=== PATIENT | male | born 1955 | race Caucasian/White ===

== ENCOUNTER 2023-01-30 10:47 | Emergency (ER) | payer MEDICARE, SELFPAY ==
[2023-01-30] VITALS (9 sets, daily range): BP systolic 101–134; BP diastolic 66–81; PULSE 69–87; RESP 16; TEMP 36.3; O2SAT 97–99; BMI 30.7
--- NOTE | 2023-01-30 11:00 | ED.GENADULT ---
HPI - General Adult General Chief complaint: Abdominal Pain Stated complaint: poss apendix problem Time Seen by Provider: 01/30/23 10:53 Source: patient Mode of arrival: Ambulatory Limitations: no limitations History of Present Illness HPI narrative: 68-year-old male who is here for evaluation of 3-4 days of right lower quadrant abdominal pain. No urinary symptoms. No testicular pain. No change in bowel habits. No nausea or vomiting. No fevers. No specific trauma. Patient states he is leaving for [place] in a couple days and he wanted to make sure that he does not have appendicitis before he goes on his trip. Related Data Home Medications Medication Instructions Recorded Confirmed levothyroxine 100 mcg tablet ##0 09/14/17 12/13/17 liothyronine 5 mcg tablet (Cytomel) ##0 09/14/17 12/13/17 omeprazole magnesium 20 mg ##0 09/14/17 12/13/17 tablet,delayed release (Prilosec OTC) simvastatin 40 mg tablet (Zocor) ##0 09/14/17 12/13/17 venlafaxine 225 mg tablet,extended ##0 09/14/17 12/13/17 release 24 hr Previous Rx's Medication Instructions Recorded azithromycin 250 mg tablet See Rx Instructions PO .COMPLEX #6 12/13/17 tabs Allergies Allergy/AdvReac Type Severity Reaction Status Date / Time Sulfa (Sulfonamide Allergy Intermediate hives Verified 12/13/17 10:10 Antibiotics) Review of Systems Gastrointestinal Gastrointestinal: Reports system reviewed and no additional complaints, except as documented Genitourinary Genitourinary: Reports system reviewed and no additional complaints, except as documented Musculoskeletal Musculoskeletal: Reports system reviewed and no additional complaints, except as documented Integumentary/Breasts Skin/Breast: Reports system reviewed and no additional complaints, except as documented Hematologic/Lymphatic On Anticoagulants: No Patient History Social History Smoking Status: Never smoker Smoking Status: Never smoker Exam Initial Vital Signs Initial Vital Signs: Vital Signs Pulse Rate 79 01/30/23 10:58 Blood Pressure 134/81 01/30/23 10:58 Pulse Oximetry 98 01/30/23 10:58 Resp Effort & Inspection: normal respiratory effort Cardio Rate: regular rate GI Other: Right lower quadrant abdominal pain with some rebound. No left-sided pain. Back/Spine/Pelvis Back: No CVA tenderness Extrem General: normal to inspection Course Orders Ordered: ED Orders 01/30/23 11:01 CT abdomen pelvis w con Stat 01/30/23 11:05 Complete Blood Count AUTO DIFF Stat Comprehensive Metabolic Panel Stat Lipase Stat Vital Signs Vital signs: Vital Signs - 8 hr 01/30/23 11:01 01/30/23 10:58 01/30/23 10:58 Temperature 97.3 F L Pulse Rate 77 79 Respiratory Rate 16 Blood Pressure 134/81 134/81 Pulse Oximetry 97 98 Oxygen Delivery Method Room Air 01/30/23 11:00 01/30/23 11:00 01/30/23 11:30 Temperature Pulse Rate 81 Respiratory Rate Blood Pressure 123/72 112/76 Pulse Oximetry 99 Oxygen Delivery Method 01/30/23 11:30 01/30/23 11:46 01/30/23 11:46 Temperature Pulse Rate 71 87 Respiratory Rate Blood Pressure 106/69 Pulse Oximetry 97 97 Oxygen Delivery Method 01/30/23 12:00 01/30/23 12:00 01/30/23 12:30 Temperature Pulse Rate 73 Respiratory Rate Blood Pressure 101/66 114/72 Pulse Oximetry 98 Oxygen Delivery Method 01/30/23 12:30 01/30/23 13:00 01/30/23 13:00 Temperature Pulse Rate 71 69 Respiratory Rate Blood Pressure 116/77 Pulse Oximetry 98 98 Oxygen Delivery Method Medical Decision Making Lab Data Lab results reviewed: Yes I reviewed the patient's lab results. 01/30/23 11:05 01/30/23 11:05 Labs: Lab Results 01/30/23 01/30/23 Range/Units 11:05 11:05 WBC 8.2 (4.5-11.0) X10^3/uL RBC 4.55 (4.5-5.9) X10^6/uL Hgb 13.8 (13.5-17.5) g/dL Hct 39.0 L (41-53) % MCV 85.7 (80-100) fL MCH 30.3 (26-34) PG MCHC 35.3 (30-36) % RDW 14.5 (11.6-14.8) % Plt Count 239 (150-400) X10^3/uL Neut % (Auto) 60.5 (50-75) % Lymph % (Auto) 25.7 (25-40) % [place] % (Auto) 8.6 (3-14) % Eos % (Auto) 3.9 (2-4) % Baso % (Auto) 1.3 (0-2) % Neut # (Auto) 5000 (5504-4282) /uL Lymph # (Auto) 2100 (5164-2885) /uL [place] # (Auto) 700 (0-900) /uL Eos # (Auto) 300 (0-450) /uL Baso # (Auto) 100 (0-100) /uL Sodium 138 (137-145) mmol/L Potassium 4.0 (3.4-5.1) mmol/L Chloride 104 (98-107) mmol/L Carbon Dioxide 26 (22-32) mmol/L BUN 12 (9-20) mg/dL Creatinine 0.90 (0.66-1.25) mg/dL Estimated GFR > 60 (>60) mL/min BUN/Creatinine Ratio 13.3 (6-22) Glucose 110 (80-110) mg/dL Calcium 9.1 (8.4-10.2) mg/dL Total Bilirubin 0.5 (0.2-1.3) mg/dL AST 35 (17-59) IU/L ALT 41 (<50) IU/L Alkaline Phosphatase 89 (38-126) U/L Total Protein 7.8 (6.3-8.2) g/dL Albumin 4.4 (3.5-5.0) g/dL Globulin 3.4 (1.7-4.1) g/dL Albumin/Globulin Ratio 1.3 (1.0-2.8) Lipase 170 (23-300) U/L Urine Dip Bedside Urine Glucose Negative Bedside Urine Bilirubin - Negative Bedside Urine Ketone - Negative Urine Specific [place] 1.005 Bedside Urine Occult Blood - Negative Bedside Urine pH 6.5 Bedside Urine Protein - Negative Bedside Urine Urobilinogen - Negative Bedside Urine Nitrite - Negative Bedside Urine Leukocytes - Negative Esterase Point of care testing: Urine Dip Bedside Urine Glucose Negative Bedside Urine Bilirubin - Negative Bedside Urine Ketone - Negative Urine Specific [place] 1.005 Bedside Urine Occult Blood - Negative Bedside Urine pH 6.5 Bedside Urine Protein - Negative Bedside Urine Urobilinogen - Negative Bedside Urine Nitrite - Negative Bedside Urine Leukocytes - Negative Esterase Imaging Data CT scan - abdomen/pelvis: Radiologist's Impression: Findings suggestive mild moderate length segment distal sigmoid colitis, less likely diverticulitis and adjacent epiploic appendagitis. MDM Narrative Medical decision making narrative: He is a benign exam. Labs unremarkable. CT scan shows sigmoid colitis. He is not having any diarrhea. He states he is had very similar symptoms in the past that have gone away on their own it is just he came in today because he is going on vacation in a few days. We did discuss the use of Tylenol and ibuprofen. No indication for antibiotics. Will have him follow-up with his primary doctor. He expressed understanding and agreement. Discharge Plan Departure Patient Disposition: Home Clinical Impression: Colitis Instructions: DI for Abdominal Pain-Adult, DI for Colitis Activity Restrictions/Additional Instructions: Recommend that you continue to take all of your medications as directed. You can take Tylenol or ibuprofen for any discomfort. Return to the emergency department for new or worsening symptoms. Prescriptions: No Action azithromycin 250 mg tablet See Rx Instructions PO .COMPLEX Qty: 6 0RF Dose Instruction: take 500 mg today (day 1), then 250 mg for 4 days (days 2-5) PO Rx Instructions: take 500 mg today (day 1), then 250 mg for 4 days (days 2-5) PO simvastatin [Zocor] 40 MG tablet Qty: 0 liothyronine [Cytomel] 5 MCG tablet Qty: 0 levothyroxine 100 MCG tablet Qty: 0 omeprazole magnesium [Prilosec OTC] 20 MG tablet,delayed release (DR/EC) Qty: 0 venlafaxine 225 MG tablet extended release 24hr Qty: 0 Referrals: Remedios Estrada MD [Primary Care Provider] - Stand Alone Forms: Patient Portal/API
--- NOTE | 2023-01-30 11:01 | DI.CT.S_ITS ---
PROCEDURE: CT ABDOMEN PELVIS W CON INDICATIONS: Right lower quadrant abdominal pain TECHNIQUE: After the administration of oral and IV contrast, axial sections were acquired from the lung bases to the pubic symphysis. Coronal and sagittal reformats were performed. For radiation dose reduction, the following was used: automated exposure control, adjustment of mA and/or kV according to patient size. COMPARISON: None. FINDINGS: Image quality: Excellent. Lung bases: Clear lung bases. Tiny hiatal hernia. Heart: No significant findings. ABDOMEN: Liver: Mild diffuse hepatic steatosis. Gallbladder: Normal. Biliary ducts: Nondilated. Pancreas: Normal. Spleen: Normal size. Adrenal Glands: No nodules. Kidneys and Ureters: Symmetric enhancement. No nephrolithiasis or hydronephrosis. No hydroureter. Left extrarenal pelvis and abrupt narrowing of the proximal ureter at the ureteropelvic junction. Small right midpole cyst.. Stomach and Bowel: Mild diverticulosis of the distal sigmoid. There is mild moderate length segment of slight wall thickening and enhancement involving this segment of sigmoid which courses to the right of midline. There is an adjacent circumscribed fatty mass immediately adjacent to the sigmoid in the right lower quadrant with trace surrounding haziness of the fat suggesting epiploic appendagitis. The appendix is in the right mid abdomen to right upper quadrant directed cranial and there are no surrounding inflammatory changes. Stomach and small bowel loops are normal. Peritoneum: No abnormal intraperitoneal fluid. No free air. Ventral Wall: No hernia. Abdominal Nodes: No retroperitoneal or mesenteric adenopathy by size criteria. Vessels: Aorta and inferior vena cava are normal in size. PELVIS: Pelvic Organs: Mildly enlarged prostate gland. Bladder: Normal wall thickness. No stones. Pelvic Nodes: No enlarged lymph nodes. Miscellaneous: No inguinal hernias are seen. Bones: There are serpiginous subcortical cystic changes in both femoral heads suspicious for avascular necrosis. Femoral head shape remains spherical. No suspicious bone lesions. IMPRESSION: 1. Findings suggesting mild moderate length segment distal sigmoid colitis, less likely diverticulitis, and adjacent epiploic appendagitis. 2. No evidence of free fluid, free air, or abscess. 3. Normal appendix. 4. Mild hepatic steatosis. 5. Changes in the femoral head suspicious for avascular necrosis. Correlate clinically. Dictated by: Paris Penaloza M.D. on 01/30/2023 at 13:01 Approved by: Paris Penaloza M.D. on 01/30/2023 at 13:10
[2023-01-30 11:15] LABS: Add Manual Diff / Slide Review NO; Basophils Absolute Auto 100 /uL (0-100); Basophils Percent Auto 1.3 % (0-2); Eosinophils Absolute Auto 300 /uL (0-450); Eosinophils Percent Auto 3.9 % (2-4); Hemoglobin 13.8 g/dL (13.5-17.5); Lymphocytes Absolute Auto 2100 /uL (1100-4500); Lymphocytes Percent Auto 25.7 % (25-40); Mean Corpuscular HGB Conc 35.3 % (30-36); Mean Corpuscular Hemoglobin 30.3 PG (26-34); Mean Corpuscular Volume 85.7 fL (80-100); Monocytes Absolute Auto 700 /uL (0-900); Monocytes Percent Auto 8.6 % (3-14); Neutrophils Absolute Auto 5000 /uL (1500-7000); Neutrophils Percent Auto 60.5 % (50-75); Platelet Count 239 X10^3/uL (150-400); Red Blood Cell Count 4.55 X10^6/uL (4.5-5.9); Red Cell Distribution Width 14.5 % (11.6-14.8); White Blood Cell Count 8.2 X10^3/uL (4.5-11.0)
[2023-01-30 11:27] LABS: Alanine Aminotransferase 41 IU/L (<50); Albumin 4.4 g/dL (3.5-5.0); Albumin Globulin Ratio 1.3 (1.0-2.8); Alkaline Phosphatase 89 U/L (38-126); Aspartate Aminotransferase 35 IU/L (17-59); BUN Creatinine Ratio 13.3 (6-22); Bilirubin Total 0.5 mg/dL (0.2-1.3); Blood Urea Nitrogen 12 mg/dL (9-20); Calcium 9.1 mg/dL (8.4-10.2); Carbon Dioxide 26 mmol/L (22-32); Chloride 104 mmol/L (98-107); Estimated Glomerular Filt Rate > 60 mL/min (>60); Globulin 3.4 g/dL (1.7-4.1); Glucose 110 mg/dL (80-110); HEMOLYSIS < 15 (0-50); Lipase 170 U/L (23-300); Sodium 138 mmol/L (137-145); Total Protein 7.8 g/dL (6.3-8.2)
== END 2023-01-30 13:38 | disposition home or self-care (01) ==
PROVIDERS: Emergency Provider Emergency Medicine; PCP Family Medicine
DX: K52.9 Noninfective gastroenteritis and colitis, unspecified (principal)
CPT/HCPCS: 36415; 74177; 80053; 81003; 83690; 85025; 99283; 99284

== ENCOUNTER → 2023-12-04 18:20 | Outpatient (CLI) | payer MEDICARE, SELFPAY | PROVIDERS: PCP Family Medicine; Visit Provider Nurse Practitioner Family | DX: R30.0 Dysuria (principal) | CPT/HCPCS: 87077; 87086; 87186 ==

== ENCOUNTER → 2023-12-11 10:21 | Outpatient (CLI) | payer MEDICARE, SELFPAY | PROVIDERS: PCP Family Medicine; Visit Provider Nurse Practitioner Family | DX: R30.0 Dysuria (principal) | CPT/HCPCS: 87086 ==

== ENCOUNTER → 2023-12-11 10:51 | Outpatient (CLI) | payer MEDICARE, SELFPAY ==
--- NOTE | 2023-12-11 10:52 | DI.US.S_ITS ---
PROCEDURE: US SCROTUM INDICATIONS: Right testicle pain TECHNIQUE: Real-time scanning was performed of the scrotum and testicles, with image documentation. Color and pulse Doppler interrogation was performed of both testicles. COMPARISON: None. FINDINGS: Right: Testicle is normal in size at 2.2 x 1.2 x 1.9 cm, and homogenous in echotexture. Epididymis is normal in overall size and heterogeneous in morphology. No hydrocele or varicoceles. Overlying scrotal skin is normal in thickness. Left: Testicle is normal in size at 3.8 x 1.8 x 2.3 cm, and homogeneous in echotexture. Epididymis is normal in overall size and morphology. No hydrocele or varicoceles. Overlying scrotal skin is normal in thickness. Doppler: Increased vascularity to the right epididymis. Color and pulse Doppler demonstrate normal and symmetric arterial flow in both testicles. IMPRESSION: Increased vascularity to the right epididymis, most consistent with epididymitis. Dictated by: Robert Stacy M.D. on 12/11/2023 at 11:33 Approved by: Robert Stacy M.D. on 12/11/2023 at 11:34
== END ==
PROVIDERS: PCP Family Medicine; Referring Provider Nurse Practitioner Family; Visit Provider Nurse Practitioner Family
DX: N50.811 Right testicular pain (principal); R30.0 Dysuria
CPT/HCPCS: 76870; 87086; 93975

== ENCOUNTER 2023-12-13 18:32 | Emergency (ER) | payer MEDICARE, SELFPAY ==
[2023-12-13] VITALS (8 sets, daily range): BP systolic 110–129; BP diastolic 67–81; PULSE 75–95; RESP 16; TEMP 36.6; O2SAT 94–96; BMI 31.4
--- NOTE | 2023-12-13 18:59 | DI.US.S_ITS ---
PROCEDURE: US SCROTUM INDICATIONS: right testicular swelling worse, know epidimytis TECHNIQUE: Real-time scanning was performed of the scrotum and testicles, with image documentation. Color and pulse Doppler interrogation was performed of both testicles. COMPARISON: [facility], , US SCROTUM, 12/11/2023, 11:13. FINDINGS: Right: Testicle is normal in size at 2.5 x 1.8 x 1.8 cm, and homogenous in echotexture. Epididymis is is enlarged with heterogeneous echotexture and increased hyperemia compared to the left. Large complex/septated hydrocele, new since prior ultrasound 12/11/2023. No varicocele. Overlying scrotal skin is increased in thickness. Left: Testicle is normal in size at 3.8 x 1.8 x 1.9 cm, and homogeneous in echotexture. Epididymis is normal in overall size and morphology. No hydrocele or varicoceles. Overlying scrotal skin is normal in thickness. Doppler: Color and pulse Doppler demonstrate normal and symmetric arterial flow in both testicles. IMPRESSION: Compared to prior ultrasound 12/11/2023, new complex and septated right hydrocele with increased scrotal skin thickening with persistent hyperemia of the right epididymis. Findings may represent progressive epididymitis versus epididymo-orchitis. Dictated by: Ling Sumner M.D.,Ph.D. on 12/13/2023 at 20:51 Approved by: Ling Sumner M.D.,Ph.D. on 12/13/2023 at 20:58
[2023-12-13 22:43] LABS: Urine Volume 10mL (spun)
[2023-12-13 22:44] LABS: Bacteria Urine Many (>30); Culture Indicated Urine Specimen Cultured; RBC Urine 1-5/HPF (0-5/HPF); Squamous Epithelial Cell Urine 0-1 /HPF (0-5/HPF); WBC Urine 30-100/HPF (0-5/HPF)
[2023-12-14] VITALS: BP 104/62; PULSE 78; O2SAT 95
--- NOTE | 2023-12-14 00:09 | ED.MALEGU ---
HPI - Male Genitourinary General Chief complaint: Urogenital-Male Stated complaint: swelling rt testicle Time Seen by Provider: 12/14/23 00:09 Source: patient Mode of arrival: Ambulatory Limitations: no limitations History of Present Illness HPI Narrative: 68-year-old male with a history of hypertension, dyslipidemia, hypothyroidism, GERD, anxiety who presents with complaint of swelling of the right testicle. Patient actually started having some urinary symptoms with dysuria urgency frequency around the 02 of December. Patient went to the walk-in clinic was diagnosed with a UTI took Macrobid between the and . Still had a little bit of urinary symptoms but then developed some right testicular pain. Was seen again had a scrotal ultrasound diagnosed with epididymitis and started on Levaquin. Has had 3 doses total. He states the pain has improved but the swelling has increased in the testicle has become more firm. Patient states no fevers no other symptoms. He states he has had a prior shoulder surgery. Has not allergy to Bactrim. No tobacco, alcohol or recreational drugs. He is set up follow up with Urology but could not get appointment until January. Related Data Home Medications Medication Instructions Recorded Confirmed levothyroxine 100 mcg tablet 100 mcg PO DAILY ##0 09/14/17 12/13/23 atorvastatin 20 mg tablet 20 mg PO DAILY 12/11/23 12/13/23 carvedilol 3.125 mg tablet 3.125 mg PO BID 12/11/23 12/13/23 omeprazole 20 mg capsule,delayed 20 mg PO DAILY 12/11/23 12/13/23 release venlafaxine 150 mg 150 mg PO DAILY 12/11/23 12/13/23 capsule,extended release 24 hr Previous Rx's Medication Instructions Recorded levofloxacin 500 mg tablet 500 mg PO DAILY #10 tabs 12/11/23 Allergies Allergy/AdvReac Type Severity Reaction Status Date / Time Sulfa (Sulfonamide Allergy Intermediate hives Verified 12/13/23 18:49 Antibiotics) Review of Systems Review of Systems ROS Unobtainable: All systems reviewed & are unremarkable except as noted in HPI and below Patient History Social History Smoking Status: Never smoker Smoking Status: Never smoker alcohol intake frequency: 0-2 drinks per day Substance Use Type: does not use Exam Narrative Exam Narrative: GENERAL: Alert and oriented x three, male in mild distress HEENT: Head normocephalic, atraumatic, EOMI, pupils reactive, face symmetric, moist mucous membranes NECK: Supple, full range of motion CARDIOVASCULAR: Regular rate and rhythm without murmurs, rubs or gallops. RESPIRATORY: Breath sounds equal bilaterally, no wheezes rales or rhonchi. ABDOMEN: Soft, nontender. Normoactive bowel sounds all 4 quadrants. No guarding or rebound, rigidity, no mass : No CVA tenderness. Male: Patient has swelling of the right testicle as well as some firmness of the testicle itself, there is some mild erythema overlying, patient's minimally tender, no left testicular tenderness swelling or skin changes appreciated., no penile discharge or lesions, cremasteric reflex intact. EXTREMITIES: Normal range of motion, no clubbing or edema. Neurovascularly intact NEUROLOGICAL: Cranial nerves II through XII grossly intact. Moving all extremities SKIN: Warm, dry, no petechiae, no rashes or lesions. Initial Vital Signs Initial Vital Signs: Vital Signs Temperature 97.8 F 12/13/23 18:45 Pulse Rate 95 H 12/13/23 18:45 Respiratory Rate 16 12/13/23 18:45 Blood Pressure 122/78 12/13/23 18:45 Pulse Oximetry 96 12/13/23 18:45 Oxygen Delivery Method Room Air 12/13/23 18:45 Course Orders Ordered: ED Orders 12/13/23 22:06 Urine Culture Stat Urine Microscopic Stat Discontinued Medications Ceftriaxone Sodium (Ceftriaxone 2,000 Mg Vial) 1,000 mg IM NOW ONE Stop: 12/14/23 00:30 Last Admin: 12/14/23 00:55 Dose: 1,000 mg Documented By: PATRICK Lidocaine HCl (Lidocaine 1% (Pf) 5 Ml) 2 ml INJ NOW ONE Stop: 12/14/23 00:43 Last Admin: 12/14/23 00:56 Dose: 2 ml Documented By: PATRICK Vital Signs Vital signs: Vital Signs - 8 hr 12/13/23 21:25 12/13/23 21:25 12/13/23 21:30 Pulse Rate 85 86 Blood Pressure 129/81 Pulse Oximetry 94 96 Oxygen Delivery Method 12/13/23 21:30 12/13/23 22:02 12/13/23 22:30 Pulse Rate 78 84 Blood Pressure 126/70 Pulse Oximetry 95 95 Oxygen Delivery Method Room Air 12/13/23 22:36 12/13/23 22:36 12/13/23 23:00 Pulse Rate 75 76 Blood Pressure 123/70 Pulse Oximetry 96 94 Oxygen Delivery Method 12/13/23 23:00 12/13/23 23:30 12/13/23 23:30 Pulse Rate 77 Blood Pressure 112/67 110/67 Pulse Oximetry 95 Oxygen Delivery Method Room Air 12/14/23 00:00 12/14/23 00:00 12/14/23 00:30 Pulse Rate 78 74 Blood Pressure 104/62 Pulse Oximetry 95 95 Oxygen Delivery Method Room Air Room Air 12/14/23 00:30 Pulse Rate Blood Pressure 111/69 Pulse Oximetry Oxygen Delivery Method MDM - Male Genitourinary Lab Data Labs: Lab Results 12/13/23 Range/Units 22:06 Urine RBC 1-5/hpf (0-5/HPF) Urine WBC 30-100/hpf H (0-5/HPF) Ur Squamous Epith Cells 0-1 /hpf (0-5/HPF) Urine Bacteria Many (>30) H (None) Ur Culture Indicated? Specimen cultured Vol Urine Centrifuged 10ml (spun) Urine Dip Bedside Urine Glucose Negative Bedside Urine Bilirubin - Negative Bedside Urine Ketone - Negative Urine Specific [place] 1.020 Bedside Urine Occult Blood +++ Bedside Urine pH 5.5 Bedside Urine Protein +/- 15 Bedside Urine Urobilinogen - Negative Bedside Urine Nitrite - Negative Bedside Urine Leukocytes +++ 500 Esterase Imaging Data scrotum US: Radiologist's Impression: Close Scrotum Ultrasound (Signed) Ling Sumner - 12/13/23 Scrotum Ultrasound (Signed) Robert Stacy - 12/11/23 Abdomen/Pelvis CT (Signed) Paris Penaloza - 01/30/23 [place] [address] Ultrasound Report Signed Patient: Cortez Pack MR#: [id number] : 1955 Acct:[id number] Age/Sex: 68 / M Date of Service: 12/13/23 Loc: ED Accession Number: [id number] Procedure: US scrotum Ordering Provider: Ramya Noland D.O. PROCEDURE: US SCROTUM INDICATIONS: right testicular swelling worse, know epidimytis TECHNIQUE: Real-time scanning was performed of the scrotum and testicles, with image documentation. Color and pulse Doppler interrogation was performed of both testicles. COMPARISON: [facility], , US SCROTUM, 12/11/2023, 11:13. FINDINGS: Right: Testicle is normal in size at 2.5 x 1.8 x 1.8 cm, and homogenous in echotexture. Epididymis is is enlarged with heterogeneous echotexture and increased hyperemia compared to the left. Large complex/septated hydrocele, new since prior ultrasound 12/11/2023. No varicocele. Overlying scrotal skin is increased in thickness. Left: Testicle is normal in size at 3.8 x 1.8 x 1.9 cm, and homogeneous in echotexture. Epididymis is normal in overall size and morphology. No hydrocele or varicoceles. Overlying scrotal skin is normal in thickness. Doppler: Color and pulse Doppler demonstrate normal and symmetric arterial flow in both testicles. IMPRESSION: Compared to prior ultrasound 12/11/2023, new complex and septated right hydrocele with increased scrotal skin thickening with persistent hyperemia of the right epididymis. Findings may represent progressive epididymitis versus epididymo-orchitis. Dictated by: Ling Sumner M.D.,Ph.D. on 12/13/2023 at 20:51 Approved by: Ling Sumner M.D.,Ph.D. on 12/13/2023 at 20:58 MDM Narrative Medical decision making narrative: 68-year-old male with pertinent recent UTI was treated with Macrobid but then developed testicular pain had epididymitis on scrotal ultrasound and started on Levaquin he has had 3 doses total. Patient states pain has improved but swelling is increased repeat urinalysis also is consistent for infection and ultrasound shows new complex septated right hydrocele with increased scrotal wall thickening and persistent hyperemia and right epididymitis findings. Patient does note he has not been sexually active any time recently. 1-5 RBCs, 3200 WBCs many bacteria. Positive for blood as well leukocyte esterase. Patient had scrotal ultrasound compared to 12/11/2023 has a new complex septated right hydrocele with increased scrotal wall thickening with persistent hyperemia of the right epididymis findings may represent progressive epididymitis versus epididymal orchitis. Spoke with [facility] urology, Dr Hammer. Discussed to continue Levaquin at this time. Discussed giving a dose of Rocephin. Plan for follow up with the next 24-48 hours for recheck. Discussed with patient we will give contact for local Urology as well as [facility]. As it is Sunday morning if he is unable to be seen through the clinic can return to the emergency department for recheck at 24-48 hours if he is having any worsening or no improvement. If he is having significant improvement does not have to return for recheck. Discussed with patient there is a potential to be developing an abscess. Discharge Plan Departure Patient Disposition: Home Clinical Impression: Orchitis and epididymitis Activity Restrictions/Additional Instructions: Follow up with Urology. There is contact included for Dr. Hammer [facility] or a local urology here in [place]. It is recommended that you follow up in 24-48 hours if you are not having any improvement of your symptoms. Your ultrasound shows changes consistent with epididymitis/orchitis UR starting develop a little bit of loculated fluid collections in the right testicle. You have been given a dose of Rocephin, please continue your Levaquin for a total of 10 days. Please return for fevers, rapidly worsening pain, redness, swelling, difficulty with urination, new abdominal back or flank pain or any other new or concerning changes. Prescriptions: No Action atorvastatin 20 mg tablet 20 mg PO DAILY venlafaxine 150 mg capsule,extended release 24hr 150 mg PO DAILY omeprazole 20 mg capsule,delayed release(DR/EC) 20 mg PO DAILY carvedilol 3.125 mg tablet 3.125 mg PO BID levofloxacin 500 mg tablet 500 mg PO DAILY Qty: 10 0RF levothyroxine 100 MCG tablet 100 mcg PO DAILY Qty: 0 Referrals: Gómez Clay MD [Physician] - Remedios Estrada MD [Primary Care Provider] - Sharan Hammer MD [Non-Staff] - Stand Alone Forms: Patient Portal/API
[2023-12-14 00:30] VITALS: BP 111/69; PULSE 74; O2SAT 95
[2023-12-14] MEDS: cefTRIAXone 2,000 MG VIAL 1000 MG IM (00:55)
[2023-12-14] MEDS: LIDOCAINE 1% (PF) 5 ML 2 ML INJ (00:56)
== END 2023-12-14 01:16 | disposition home or self-care (01) ==
PROVIDERS: Emergency Provider Emergency Medicine; PCP Family Medicine
DX: N45.3 Epididymo-orchitis (principal)
CPT/HCPCS: 76870; 81003; 81015; 87086; 96372; 99283; J0696

== ENCOUNTER → 2024-05-05 06:41 | Outpatient (CLI) | payer MEDICARE, SELFPAY ==
--- NOTE | 2024-05-05 06:43 | DI.US.S_ITS ---
PROCEDURE: US ABD AORTA ANEURYSM SCREEN INDICATIONS: SCREENING TECHNIQUE: Real time scanning was performed of the aorta and iliac arteries, with image documentation. COMPARISON: None. FINDINGS: Aorta: Proximal aorta not well visualized due to overlying bowel gas. Mid-aorta measures 1.6 cm. Distal aortic diameter is 1.8 cm. Iliac arteries: Right common iliac artery measures 1.2 cm. Left common iliac artery measures 1.2 cm. IMPRESSION: No infrarenal aortic aneurysm. Dictated by: Rolando Lugo M.D. on 05/05/2024 at 8:25 Approved by: Rolando Lugo M.D. on 05/05/2024 at 8:26
--- NOTE | 2024-05-05 06:43 | DI.US.S_ITS ---
PROCEDURE: US ARTERIAL DUPLEX LE BI INDICATIONS: PAD TECHNIQUE: Color and pulse Doppler interrogation was performed of both lower extremity arterial systems, with image documentation. COMPARISON: None. FINDINGS: Right lower extremity: Common femoral artery: 89.1 cm/sec, with triphasic flow. Deep femoral artery: 43.3 cm/sec, with triphasic flow. Proximal superficial femoral artery: 94.7 cm/sec, with triphasic flow. Mid superficial femoral artery: 66.2 cm/sec, with triphasic flow. Distal superficial femoral artery: 47.1 cm/sec, with triphasic flow. Popliteal artery: 42.9 cm/sec, with triphasic flow. Posterior tibial artery: 42.9 cm/sec, with triphasic flow. Anterior tibial artery/dorsalis pedis: 59.9 cm/sec, with triphasic flow. Chaudhary-scale imaging description: No significant atheromatous disease. Left lower extremity: Common femoral artery: 81.6 cm/sec, with triphasic flow. Deep femoral artery: 50.4 cm/sec, with triphasic flow. Proximal superficial femoral artery: 58.4 cm/sec, with triphasic flow. Mid superficial femoral artery: 62.5 cm/sec, with triphasic flow. Distal superficial femoral artery: 35.6 cm/sec, with triphasic flow. Popliteal artery: 39 cm/sec, with triphasic flow. Posterior tibial artery: 56.8 cm/sec, with triphasic flow. Anterior tibial artery/dorsalis pedis: 33.3 cm/sec, with triphasic flow. Chaudhary-scale imaging description: No significant atheromatous disease. IMPRESSION: Normal without evidence of stenosis or significant atheromatous disease on ultrasound. Dictated by: Lupillo Hayes M.D. on 05/05/2024 at 8:49 Approved by: Lupillo Hayes M.D. on 05/05/2024 at 11:09
== END ==
PROVIDERS: PCP Family Medicine; Referring Provider Family Medicine; Visit Provider Family Medicine
DX: I71.40 Abdominal aortic aneurysm, without rupture, unspecified (principal); I73.9 Peripheral vascular disease, unspecified
CPT/HCPCS: 76706; 93925